=== PATIENT | female | born 1955 | race Two or more races ===

== ENCOUNTER 2025-05-16 23:02 | Inpatient (IN) | payer MEDICARE, OTHER ==
[~2025-05-16] VITALS: Ht 152.4 cm; Wt 66.7 kg
[2025-05-16] MEDS: IV NS 0.9% 1,000 ML BAG IV ONE (23:21)
[2025-05-16] MEDS: IBUPROFEN 600 MG TABLET PO ONE (23:23)
[2025-05-16] MEDS ORDERED: ACETAMINOPHEN 650 MG/SUPP.RECT RC ONE (23:25)
[2025-05-16] MEDS: ACETAMINOPHEN 650 MG/SUPP.RECT RC ONE (23:36)
[2025-05-16 23:38] LABS: RED BLOOD CELL COUNT(AUTO) 4.08 MIL/uL (4.0-5.2)
[2025-05-16 23:44] LABS: PLATELET COUNT (AUTO) 437 K/uL (150-450); RED CELL DISTRIBUTION WIDTH 17.3 % (11.5-15.0); WHITE BLOOD COUNT (AUTO) 11.0 K/uL (4.3-11.0)
[2025-05-16 23:48] LABS: CALCIUM, SERUM 8.5 mg/dL (8.5-10.1); CREATININE 0.8 mg/dL (0.6-1.3); UREA NITROGEN, BLOOD 43 mg/dL (7-18)
[2025-05-16 23:48] LABS: APPEARANCE,URINE CLOUDY (CLEAR); BLOOD, URINE NEGATIVE Ery/uL (NEGATIVE); LEUKOCYTE ESTERASE ,URINE NEGATIVE (NEGATIVE); NITRITE, URINE NEGATIVE (NEGATIVE); UGLUCOSE TRACE mg/dL (NEGATIVE)
[2025-05-16 23:50] LABS: INR 1.14 (0.91-1.10)
[2025-05-16 23:53] LABS: ASPARTATE AMINOTRANSFERASE 23 U/L (15-37); TOTAL PROTEIN, SERUM 6.2 g/dL (6.4-8.2)
[2025-05-16 23:54] LABS: SODIUM SERUM 166 mmol/L (136-145)
[2025-05-16 23:57] LABS: LACTIC ACID 1.8 mmol/L (0.4-2.0)
[2025-05-17] VITALS (85 sets, daily range): BP systolic 72–175; BP diastolic 46–164; TEMP 98.7–99.8; O2SAT 94–100
[2025-05-17 00:02] LABS: ABG BASE EXCESS 2.2 mmol/L (-2.0-3.0); ABG OXYGEN SATURATION 98.5 % (94.0-98.0); ABG PCO2 36.6 mmHg (32.0-45.0); ABG PH 7.468 (7.350-7.450); ABG PO2 235.7 mmHg (83.0-108.0); ABG TOTAL HEMOGLOBIN 10.0 G/dL (12.0-16.0); FLOW, BLOOD GAS 15.00 L/min (0.00-30.00); SITE, ABG RIGHT RADIAL
[2025-05-17] MEDS: IV D5/0.45 NACL 1,000 ML IV ONE ×2 (00:06→01:33)
[2025-05-17 00:54] LABS: ADD URINE CULTURE YES; URINE AMORPHOUS URATE Moderate /HPF (None Seen)
[2025-05-17] MEDS ORDERED: NOREPINEPHRINE 8MG/250ML RTU 250 ML IV ONE (01:34)
[2025-05-17] MEDS: NOREPINEPHRINE 8 MG in IV NS 0.9% 242 ML IV PRN ×2 (01:42→04:09)
[2025-05-17] MEDS ORDERED: ENOXAPARIN SODIUM 60 MG/0.6 ML DISP.SYRIN SQ SCH (02:00)
[2025-05-17] MEDS ORDERED: DOSING PER PHARMACY-VANCOMYCIN IV XX PRN (02:00)
[2025-05-17] MEDS ORDERED: ACETAMINOPHEN 650 MG/SUPP.RECT RC PRN (02:00)
[2025-05-17] MEDS ORDERED: NOREPINEPHRINE 8 MG in IV NS 0.9% 250 ML IV PRN (02:00)
[2025-05-17 03:10] LABS: CALCIUM, SERUM 7.6 mg/dL (8.5-10.1); CREATININE 1.0 mg/dL (0.6-1.3); UREA NITROGEN, BLOOD 39.0 mg/dL (7-18)
[2025-05-17 03:16] LABS: ASPARTATE AMINOTRANSFERASE 16.0 U/L (15-37); TOTAL PROTEIN, SERUM 5.3 g/dL (6.4-8.2)
[2025-05-17 03:17] LABS: SODIUM SERUM 158.0 mmol/L (136-145)
[2025-05-17] MEDS: NOREPINEPHRINE 8MG/250ML RTU 250 ML IV ONE (04:06)
[2025-05-17] MEDS: VANCOMYCIN 1 GM /D5W 250 ML PB IV ONE (04:24)
[2025-05-17] MEDS: VANCOMYCIN 1 GM in IV D5W 250ml IV ONE (04:24)
[2025-05-17] MEDS: IV D5/0.45 NACL 1,000 ML IV PRN (04:24)
[2025-05-17] MEDS ORDERED: CEFEPIME 1 GM VIAL ONE (05:46)
[2025-05-17] MEDS: CEFEPIME 2 GM in IV D5W 100 ML IV SCH ×2 (06:00→17:57)
[2025-05-17] MEDS: AMIODARONE 150 MG in IV D5W 100 ML IV ONE (07:40)
[2025-05-17] MEDS: AMIODARONE 450 MG in IV D5W 241 ML IV PRN (07:56)
[2025-05-17] MEDS: PANTOPRAZOLE 40 MG VIAL IV SCH (09:02)
[2025-05-17] MEDS: ENOXAPARIN SODIUM 60 MG/0.6 ML DISP.SYRIN SQ SCH (09:03)
[2025-05-17] MEDS ORDERED: IV NS 0.9% 1,000 ML IV PRN (09:30)
[2025-05-17] MEDS ORDERED: DEXTROSE 50%-WATER 50 ML DISP.SYRIN IV PRN (10:00)
[2025-05-17] MEDS: IV 1/2NS 1000 ML 1,000 ML IV SCH (10:28)
[2025-05-17 11:30] LABS: LDL 57.0 mg/dL (0-99)
[2025-05-17] MEDS: BLOOD SUGAR DIAGNOSTIC 1 EACH STRIP VI SCH (12:27)
[2025-05-17] MEDS: INSULIN REGULAR, HUMAN 100 UNIT/ML 3 ML VIAL SQ PRN (12:29)
[2025-05-17 13:31] LABS: CALCIUM, SERUM 7.5 mg/dL (8.5-10.1); CREATININE 0.6 mg/dL (0.6-1.3); SODIUM SERUM 154.0 mmol/L (136-145); UREA NITROGEN, BLOOD 30.0 mg/dL (7-18)
[2025-05-17 17:02] LABS: PLATELET COUNT (AUTO) 396 K/uL (150-450); RED BLOOD CELL COUNT(AUTO) 3.37 MIL/uL (4.0-5.2); RED CELL DISTRIBUTION WIDTH 16.5 % (11.5-15.0); WHITE BLOOD COUNT (AUTO) 10.5 K/uL (4.3-11.0)
[2025-05-17 17:19] LABS: ASPARTATE AMINOTRANSFERASE 16.0 U/L (15-37); CALCIUM, SERUM 7.4 mg/dL (8.5-10.1); CREATININE 0.7 mg/dL (0.6-1.3); PHOSPHORUS 1.6 mg/dL (2.5-4.9); TOTAL PROTEIN, SERUM 5.5 g/dL (6.4-8.2); UREA NITROGEN, BLOOD 28.0 mg/dL (7-18)
[2025-05-17 17:41] LABS: SODIUM SERUM 158.0 mmol/L (136-145)
[2025-05-17 19:07] LABS: CALCIUM, SERUM 7.1 mg/dL (8.5-10.1); CREATININE 0.7 mg/dL (0.6-1.3); UREA NITROGEN, BLOOD 27.0 mg/dL (7-18)
[2025-05-17 19:20] LABS: SODIUM SERUM 157.0 mmol/L (136-145)
[2025-05-17] MEDS: SODIUM POLYSTYRENE SULFONATE 15 G/60 ML BOTTLE RC ONE (19:30)
[2025-05-17] MEDS: Z GUARD REMEDY 4 OZ OINT TP SCH (20:34)
[2025-05-18] VITALS (93 sets, daily range): BP systolic 80–121; BP diastolic 55–102; TEMP 97–98.9; O2SAT 94–100
[2025-05-18] MEDS: VANCOMYCIN 1 GM in IV D5W 250 ML IV SCH (02:00)
[2025-05-18 05:03] LABS: PLATELET COUNT (AUTO) 378 K/uL (150-450); RED BLOOD CELL COUNT(AUTO) 3.19 MIL/uL (4.0-5.2); RED CELL DISTRIBUTION WIDTH 16.2 % (11.5-15.0); WHITE BLOOD COUNT (AUTO) 11.1 K/uL (4.3-11.0)
[2025-05-18 05:16] LABS: ASPARTATE AMINOTRANSFERASE 16.0 U/L (15-37); CALCIUM, SERUM 6.9 mg/dL (8.5-10.1); CREATININE 0.6 mg/dL (0.6-1.3); PHOSPHORUS 1.8 mg/dL (2.5-4.9); SODIUM SERUM 151.0 mmol/L (136-145); TOTAL PROTEIN, SERUM 4.8 g/dL (6.4-8.2); UREA NITROGEN, BLOOD 22.0 mg/dL (7-18)
[2025-05-18] MEDS: POTASSIUM CL. PREMIX PERIPHER. 50 ML IV SCH (08:54)
[2025-05-18] MEDS: THERAHONEY GEL 1.5 OZ TUBE TP SCH (09:09)
[2025-05-18] MEDS ORDERED: POTASSIUM PHOSPHATE MM 15 MMOL in IV NS 0.9% 250 ML IV SCH (10:00)
[2025-05-18] MEDS: POTASSIUM PHOSPHATE MM 15 MMOL in IV NS 0.9% 250 ML IV SCH (11:16)
[2025-05-18] MEDS: BLOOD SUGAR DIAGNOSTIC 1 EACH STRIP VI SCH (11:29)
[2025-05-18] MEDS: MUPIROCIN OINT 2% 22 GM TUBE NS SCH (20:07)
[2025-05-18] MEDS: IV D5/0.45 NACL 1,000 ML IV PRN (20:49)
[2025-05-18] MEDS ORDERED: IV D5/0.45 NACL 1,000 ML IV PRN (21:00)
[2025-05-19] VITALS (89 sets, daily range): BP systolic 85–149; BP diastolic 56–129; TEMP 96.9–98.5; O2SAT 92–100
[2025-05-19] MEDS: INSULIN REGULAR, HUMAN 100 UNIT/ML 3 ML VIAL SQ PRN (00:37)
[2025-05-19 04:57] LABS: PLATELET COUNT (AUTO) 408 K/uL (150-450); RED BLOOD CELL COUNT(AUTO) 3.15 MIL/uL (4.0-5.2); RED CELL DISTRIBUTION WIDTH 16.3 % (11.5-15.0); WHITE BLOOD COUNT (AUTO) 10.6 K/uL (4.3-11.0)
[2025-05-19 05:11] LABS: CALCIUM, SERUM 7.2 mg/dL (8.5-10.1); CREATININE 0.6 mg/dL (0.6-1.3); SODIUM SERUM 147.0 mmol/L (136-145); UREA NITROGEN, BLOOD 16.0 mg/dL (7-18)
[2025-05-19] MEDS: DIGOXIN INJ 0.5 MG/2 ML AMPUL IV SCH (13:02)
[2025-05-19] MEDS: AMIODARONE HCL 200 MG TABLET PO SCH (15:10)
[2025-05-19] MEDS: NYSTATIN (PYXIS) 500,000 UNIT/5 ML ORAL.SUSP PO SCH (18:26)
[2025-05-20] VITALS (27 sets, daily range): BP systolic 91–132; BP diastolic 53–94; TEMP 97.4–98.4; O2SAT 92–99
[2025-05-20 05:12] LABS: PLATELET COUNT (AUTO) 338 K/uL (150-450); RED BLOOD CELL COUNT(AUTO) 3.06 MIL/uL (4.0-5.2); RED CELL DISTRIBUTION WIDTH 16.1 % (11.5-15.0); WHITE BLOOD COUNT (AUTO) 10.3 K/uL (4.3-11.0)
[2025-05-20 05:14] LABS: CALCIUM, SERUM 7.7 mg/dL (8.5-10.1); CREATININE 0.6 mg/dL (0.6-1.3); SODIUM SERUM 143 mmol/L (136-145); UREA NITROGEN, BLOOD 8 mg/dL (7-18)
[2025-05-20] MEDS ORDERED: POTASSIUM CHLORIDE 20 MEQ TAB.PRT.SR PO ONE (08:30)
[2025-05-20] MEDS: POTASSIUM CL. PREMIX PERIPHER. 50 ML IV SCH (08:52)
[2025-05-20] MEDS: POTASSIUM CHLORIDE 20 MEQ POWDER PACKET PO ONE (08:52)
[2025-05-20 09:01] LABS: PHOSPHORUS 1.9 mg/dL (2.5-4.9)
[2025-05-20] MEDS: APIXABAN 5 MG TABLET PO SCH (09:13)
[2025-05-20] MEDS: Magnesium 1GM/D5W 100ML PREMIX 100 ML IV SCH (11:14)
[2025-05-20] MEDS: NEUTRA PHOS 1 POWD.PACKET PO ONE (15:35)
[2025-05-21] VITALS: BP 141/71; TEMP 98.8; O2SAT 95
[2025-05-21] MEDS: VANCOMYCIN HCL 1.25 GM in IV D5W 250 ML IV SCH (01:54)
[2025-05-21 04:00] VITALS: BP 167/61; TEMP 98.1; O2SAT 95
[2025-05-21] MEDS: Magnesium 1GM/D5W 100ML PREMIX PIGGYBACK IV ONE (05:52)
[2025-05-21 06:11] LABS: CALCIUM, SERUM 8.7 mg/dL (8.5-10.1); CREATININE 0.4 mg/dL (0.6-1.3); SODIUM SERUM 144.0 mmol/L (136-145); UREA NITROGEN, BLOOD 6.0 mg/dL (7-18)
[2025-05-21 06:17] LABS: PLATELET COUNT (AUTO) 331 K/uL (150-450); RED BLOOD CELL COUNT(AUTO) 3.27 MIL/uL (4.0-5.2); RED CELL DISTRIBUTION WIDTH 16.1 % (11.5-15.0); WHITE BLOOD COUNT (AUTO) 11.1 K/uL (4.3-11.0)
[2025-05-21 06:21] LABS: PHOSPHORUS 2.4 mg/dL (2.5-4.9)
[2025-05-21] MEDS: NEUTRA PHOS 1 POWD.PACKET PO ONE ×2 (07:50→16:19)
[2025-05-21] MEDS: POTASSIUM CL. PREMIX PERIPHER. 50 ML IV SCH (07:50)
[2025-05-21 08:00] VITALS: BP 138/99; TEMP 98.3; O2SAT 93
[2025-05-21 08:30] LABS: LYMPHOCYTES % (MANUAL) 18 % (16-48); MONOCYTES % (MANUAL) 8 % (0-11.0); NEUTROPHILS % (MANUAL) 74 (42-76); PLATELET ESTIMATE ADEQUATE
[2025-05-21 12:00] VITALS: BP 112/84; TEMP 98; O2SAT 93
[2025-05-21 16:00] VITALS: BP 125/74; TEMP 98.1; O2SAT 97
[2025-05-21 20:00] VITALS: BP 112/68; TEMP 98.8; O2SAT 97
[2025-05-22] VITALS: BP 126/79; TEMP 98.6; O2SAT 99
[2025-05-22] MEDS: *INSULIN REGULAR(HUMULIN R)HUM 100 UNIT/ML VIAL SQ PRN
[2025-05-22 04:00] VITALS: BP 139/82; TEMP 98.1; O2SAT 99
[2025-05-22 06:48] LABS: PLATELET COUNT (AUTO) 365 K/uL (150-450); RED BLOOD CELL COUNT(AUTO) 3.51 MIL/uL (4.0-5.2); RED CELL DISTRIBUTION WIDTH 16.3 % (11.5-15.0); WHITE BLOOD COUNT (AUTO) 10.3 K/uL (4.3-11.0)
[2025-05-22 06:57] LABS: CALCIUM, SERUM 8.8 mg/dL (8.5-10.1); CREATININE 0.4 mg/dL (0.6-1.3); SODIUM SERUM 142.0 mmol/L (136-145); UREA NITROGEN, BLOOD 6.0 mg/dL (7-18)
[2025-05-22 08:00] VITALS: BP 148/91; TEMP 99; O2SAT 99
[2025-05-22] MEDS: PANTOPRAZOLE 40 MG/PACK PACK PO SCH (08:22)
[2025-05-22 08:33] LABS: LYMPHOCYTES % (MANUAL) 19 % (16-48); MONOCYTES % (MANUAL) 5 % (0-11.0); NEUTROPHILS % (MANUAL) 76 (42-76); PLATELET ESTIMATE ADEQUATE
[2025-05-22 12:00] VITALS: BP 104/57; TEMP 99.1; O2SAT 99
[2025-05-22 16:00] VITALS: BP 116/65; TEMP 99; O2SAT 99
[2025-05-22 20:00] VITALS: BP 109/50; TEMP 98.6; O2SAT 97
[2025-05-23 04:00] VITALS: BP 160/72; TEMP 97.5; O2SAT 97
[2025-05-23 07:27] LABS: CALCIUM, SERUM 8.1 mg/dL (8.5-10.1); CREATININE 0.4 mg/dL (0.6-1.3); PHOSPHORUS 2.8 mg/dL (2.5-4.9); SODIUM SERUM 138.0 mmol/L (136-145); UREA NITROGEN, BLOOD 8.0 mg/dL (7-18)
[2025-05-23 07:48] LABS: PLATELET COUNT (AUTO) 287 K/uL (150-450); RED BLOOD CELL COUNT(AUTO) 2.60 MIL/uL (4.0-5.2); RED CELL DISTRIBUTION WIDTH 17.5 % (11.5-15.0); WHITE BLOOD COUNT (AUTO) 7.3 K/uL (4.3-11.0)
[2025-05-23 08:00] VITALS: BP 147/82; TEMP 98.1; O2SAT 99
[2025-05-23] MEDS ORDERED: DOXY-326 PO (10:31)
[2025-05-23] MEDS ORDERED: AMOX-427 PO (10:31)
[2025-05-23] MEDS ORDERED: COLL30OI TP (10:31)
[2025-05-23] MEDS ORDERED: AMIO200T7 PO (10:31)
[2025-05-23] MEDS ORDERED: NYST5ORA PO (10:31)
[2025-05-23] MEDS ORDERED: APIX5TAB PO (10:31)
[2025-05-23] MEDS ORDERED: MUPI22OI7 NS (10:31)
[2025-05-23] MEDS ORDERED: PANT40TA2 PO (10:32)
[2025-05-23 12:01] VITALS: BP 147/82
== END 2025-05-23 16:00 | DRG 177 ==
LOC: ER 23:09 → ICU 05-17 02:42 → TELE1 05-20 18:21 → MEDSG1 05-22 11:10
PROVIDERS: ADMIT Registered Nurse Psychiatric/Mental Health; ATTEND Nurse Practitioner Acute Care
DX: J15.69 Pneumonia due to other Gram-negative bacteria (principal); G93.41 Metabolic encephalopathy; L89.323 Pressure ulcer of left buttock, stage 3; J96.01 Acute respiratory failure with hypoxia; E87.0 Hyperosmolality and hypernatremia; I82.611 Acute embolism and thrombosis of superficial veins of right upper extremity; N17.9 Acute kidney failure, unspecified; E46 Unspecified protein-calorie malnutrition; G91.2 (Idiopathic) normal pressure hydrocephalus; I48.91 Unspecified atrial fibrillation; E86.1 Hypovolemia; E86.0 Dehydration; Z20.822 Contact with and (suspected) exposure to COVID-19; F41.9 Anxiety disorder, unspecified; F32.A Depression, unspecified; Z86.16 Personal history of COVID-19; Z87.01 Personal history of pneumonia (recurrent); Z86.718 Personal history of other venous thrombosis and embolism; Z86.711 Personal history of pulmonary embolism; Z79.01 Long term (current) use of anticoagulants; Z51.5 Encounter for palliative care; J15.9 Unspecified bacterial pneumonia; B96.89 Other specified bacterial agents as the cause of diseases classified elsewhere; F03.90 Unspecified dementia, unspecified severity, without behavioral disturbance, psychotic disturbance, mood disturbance, and anxiety; G93.89 Other specified disorders of brain; Z74.01 Bed confinement status; E87.6 Hypokalemia; L89.520 Pressure ulcer of left ankle, unstageable; L89.142 Pressure ulcer of left lower back, stage 2; L89.132 Pressure ulcer of right lower back, stage 2; L89.610 Pressure ulcer of right heel, unstageable; L89.890 Pressure ulcer of other site, unstageable; L89.896 Pressure-induced deep tissue damage of other site
CPT/HCPCS: 36415; 36600; 70450-TC; 71045-TC; 80048-TC; 80053-TC; 80061-TC; 80076-TC; 80202-TC; 81001; 82803-TC; 82962-TC; 83605-TC; 83735-TC; 84100-TC; 84439-TC; 84443-TC; 84484-TC; 85025-TC; 85027-TC; 85378-TC; 85730-TC; 87040-TC; 87081-TC; 87086-TC; 92526; 92611; 93971-TC; 97110-TC; 97530-TC; A4223; A6213; A6253; G0378; J0282; J0692; J1160; J1650; J1815; J2470; J3373; J3475; J3480; J3490; J7030; J7050; J7060